=== PATIENT | male | born 1950 | race Caucasian/White ===

== ENCOUNTER 2016-06-20 18:34 | Emergency (ER) | payer OTHER | END 2016-06-20 20:13 | disposition home or self-care (01) | LOC: ED 18:34 | DX: H54.61 Unqualified visual loss, right eye, normal vision left eye (principal); I10 Essential (primary) hypertension; E78.5 Hyperlipidemia, unspecified; E78.00 Pure hypercholesterolemia, unspecified; Z87.891 Personal history of nicotine dependence ==